=== PATIENT | male | born 1990 | race African-American/Black ===

== ENCOUNTER 2023-11-19 16:24 | Inpatient (IN) | payer OTHER ==
[~2023-11-19] VITALS: Ht 188 cm; Wt 86.4 kg
[2023-11-19] MEDS ORDERED: LORazepam 2 MG TABLET PO PRN (18:00)
[2023-11-19] MEDS ORDERED: HALOPERIDOL 5 MG TABLET PO PRN (18:00)
[2023-11-19 18:03] LABS: BASOPHILS % (AUTO) 0.5 % (0.0-2.0); EOSINOPHILS % (AUTO) 0 % (1.0-6.0); HEMATOCRIT 45.9 % (41-53); HEMOGLOBIN 14.9 g/dL (13.5-17.5); LYMPHOCYTES # (AUTO) 0.7 K/uL (1.0-4.8); LYMPHOCYTES % (AUTO) 4.9 % (22.0-44.0); MEAN CORPUSCULAR HEMOGLOBIN 31.1 pg (26.0-34.0); MEAN CORPUSCULAR HGB CONC 32.6 G/dL (31.0-37.0); MEAN CORPUSCULAR VOLUME 96 fL (80-100); MONOCYTES # (AUTO) 0.5 K/uL (0.1-1.0); NEUTROPHILS # (AUTO) 11.9 K/uL (1.8-7.7); PLATELET COUNT (AUTO) 181 K/uL (150-450); RED BLOOD CELL COUNT(AUTO) 4.81 MIL/uL (4.50-5.90); WHITE BLOOD COUNT (AUTO) 13.2 K/uL (4.5-11.0)
[2023-11-19 18:11] LABS: ANION GAP 22 mmol/L (8-16); CALCIUM, TOTAL 9.7 mg/dL (8.8-10.5); CARBON DIOXIDE 22 mmol/L (22-29); CHLORIDE 101 mmol/L (98-107); CREATININE 1.51 mg/dL (0.60-1.30); GLOMERULAR FILTR. RATE CALC 54 mL/min (>60); GLUCOSE,RANDOM 158 mg/dL (70-110); POTASSIUM 3.4 mmol/L (3.5-5.1); SODIUM SERUM 145 mmol/L (136-145); UREA NITROGEN, BLOOD 17 mg/dL (7-18)
[2023-11-19 18:11] LABS: GLUCOMETER DEV NAME(LOC) ERT.5; GLUCOSE,POINT OF CARE 199 MG/DL (70-110)
[2023-11-19] MEDS: LORazepam 2 MG/ML VIAL IM ONE (18:16)
[2023-11-19] MEDS: DiphenhydrAMINE HCL 50 MG/ML VIAL IM ONE (18:16)
[2023-11-19] MEDS: HALOPERIDOL LACTATE 5 MG/ML VIAL IM ONE (18:16)
[2023-11-19] MEDS: SODIUM CHLORIDE 0.9% 1,000 ML IV ONE ×4 (18:17→23:00)
[2023-11-19 18:20] LABS: NEUTROPHILS % (AUTO) 90.6 % (40.0-70.0)
[2023-11-19 18:30] LABS: ALCOHOL, BLOOD (SERUM) < 3 mg/dL (0-10)
[2023-11-19 18:52] LABS: TROPONIN I-HIGH SENSITIVITY 80 ng/L (<76)
[2023-11-19] MEDS: LORazepam 2 MG/ML VIAL IVP ONE ×4 (18:59→22:38)
[2023-11-19] MEDS: ADENOSINE 3 MG/ML 2 ML VIAL IVP ONE (19:18)
[2023-11-19 20:20] LABS: APPEARANCE,URINE CLEAR (CLEAR); BILIRUBIN,URINE NEGATIVE (NEGATIVE); COLOR,URINE YELLOW (YELLOW); GLUCOSE, URINE (UA) NEGATIVE (NEGATIVE); LEUKOCYTE ESTERASE ,URINE NEGATIVE (NEGATIVE); NITRATE,URINE NEGATIVE (NEGATIVE); OCCULT BLOOD,URINE NEGATIVE (NEGATIVE); PH,URINE 5.5 (5.0-8.0); PROTEIN,URINE 30-70 mg/dL (NEGATIVE); SPECIFIC GRAVITIY, URINE 1.032 (1.003-1.030); UROBILINOGEN,URINE <=1.0 mg/dL (<=1.0)
[2023-11-19 20:21] LABS: PH,URINE DRUG SCREEN 5.5 (5.0-8.0)
[2023-11-19 20:28] LABS: ALCOHOL, URINE DRUG SCREEN NEGATIVE (NEGATIVE); BARBITURATE SCREEN, URINE NEGATIVE (NEGATIVE); BENZODIAZEPINES SCREEN,URINE NEGATIVE (NEGATIVE); CANNABINOID SCREEN,URINE NEGATIVE (NEGATIVE); COCAINE SCREEN,URINE NEGATIVE (NEGATIVE); METHADONE SCREEN, URINE NEGATIVE (NEGATIVE); OPIATE SCREEN,URINE NEGATIVE (NEGATIVE); PHENCYCLIDINE SCREEN,URINE NEGATIVE (NEGATIVE)
[2023-11-19 20:41] LABS: AMPHET/METH SCREEN,URINE POSITIVE (NEGATIVE)
[2023-11-19] MEDS: KETAMINE HCL 50 MG/ML 10 ML VIAL IVP ONE (21:17)
[2023-11-20 09:18] VITALS: BP 138/86; PULSE 116; RESP 19; TEMP 98.6; O2SAT 98
[2023-11-20 11:59] VITALS: BP 140/66; PULSE 98; RESP 18; TEMP 98.6; O2SAT 100
[2023-11-20 16:58] VITALS: BP 134/71; PULSE 91; RESP 18; TEMP 98; O2SAT 99
[2023-11-21 02:56] LABS: ALCOHOL, URINE DRUG SCREEN NEGATIVE (NEGATIVE); AMPHET/METH SCREEN,URINE POSITIVE (NEGATIVE); BARBITURATE SCREEN, URINE NEGATIVE (NEGATIVE); BENZODIAZEPINES SCREEN,URINE NEGATIVE (NEGATIVE); CANNABINOID SCREEN,URINE NEGATIVE (NEGATIVE); COCAINE SCREEN,URINE NEGATIVE (NEGATIVE); METHADONE SCREEN, URINE NEGATIVE (NEGATIVE); OPIATE SCREEN,URINE NEGATIVE (NEGATIVE); PHENCYCLIDINE SCREEN,URINE NEGATIVE (NEGATIVE)
[2023-11-21] MEDS: ZIPRASIDONE MESYLATE 20 MG/VIAL IM ONE (02:56)
[2023-11-21] MEDS: ZOLPIDEM TARTRATE 10 MG TABLET PO PRN (02:56)
[2023-11-21] MEDS: LORazepam 2 MG/ML VIAL IM ONE (02:56)
[2023-11-21 03:00] VITALS: BP 127/59; PULSE 125; RESP 18; TEMP 98.4; O2SAT 98
== END 2023-11-20 21:30 | disposition left against medical advice (07) | DRG 201 ==
LOC: EMS 16:26 → EDH 23:57 → 5S 11-20 09:39 → UNDODISIN 11-20 21:30
PROVIDERS: ADMIT Hospitalist; ATTEND Hospitalist
DX: I47.10 Supraventricular tachycardia, unspecified (principal); G21.0 Malignant neuroleptic syndrome; M62.82 Rhabdomyolysis; R45.851 Suicidal ideations; F20.9 Schizophrenia, unspecified; Z78.1 Physical restraint status; Z88.0 Allergy status to penicillin
CPT/HCPCS: 71045; 80048; 80307; 81003; 82550; 82962; 84484; 85025; 93005; 99285; G0480; J0153; J1200; J1630; J2060; J3486; J3490; J7030; 36415-L1; 36415-TC